=== PATIENT | male | born 1980 | race Caucasian/White ===

== ENCOUNTER 2017-04-29 13:52 | Emergency (ER) | payer SELFPAY ==
[~2017-04-29] VITALS: Ht 172.7 cm; Wt 97.5 kg
[~2017-04-29 13:52] MED LIST: CLINDAMYCIN HC300 MG PO; CLOBETASOL EMOL45 GM TP
[2017-04-29 13:58] VITALS: BP 134/91
[2017-04-29] MEDS ORDERED: ADVIL,NUPRIN,M200 MG PO (14:20)
[2017-04-29 15:33] LABS: HEMATOCRIT 48.9 % (38.0-50.0); MCH 30.6 PG (29.0-34.0); MCHC 34.6 G/DL (30.0-36.0); MCV 88.4 FL (86-99); MEAN PLAT.VOLUME 9.3 uM^3 (9.0-12.4); PLATELET COUNT 237 K/uL (156-360); RBC DIS.WIDTH-SD 39.4 % (39-53); RED BLOOD COUNT 5.53 M/uL (4.00-5.50); WHITE BLOOD COUNT 7.1 K/uL (4.1-10.2)
[2017-04-29 15:43] LABS: CHLORIDE 109 mEq/L (99-109); POTASSIUM 4.5 mEq/L (3.7-5.4); SODIUM 143 mEq/L (136-147)
[2017-04-29 15:46] LABS: GLUCOSE 100 mg/dL (70-99)
[2017-04-29 15:47] LABS: ANION GAP 9 MEQ/L (2-14)
[2017-04-29 15:48] LABS: TOTAL BILIRUBIN 1.1 mg/dL (0.0-1.0)
[2017-04-29 15:49] LABS: ALKALINE PHOSPHATASE 103 IU/L (3-129); GFR ESTIMATE (CALCULATED) > 59 mL/min/
[2017-04-29 15:50] LABS: UREA NITROGEN (BUN) 17 mg/dL (9-23)
[2017-04-29 16:05] LABS: INTERNAL CONTROL VALID? YES; MONOSPOT (MONONUCLEOSIS SEROL) NEGATIVE
== END 2017-04-29 16:44 | disposition home or self-care (01) ==
LOC: EME 13:52
PROVIDERS: Nurse Practitioner Family
DX: B34.9 Viral infection, unspecified (principal); J02.9 Acute pharyngitis, unspecified; R59.0 Localized enlarged lymph nodes
CPT/HCPCS: 80053; 85027; 86308; 87651 90; 99281; 99283; J1100